=== PATIENT | female | born 1940 | race Two or more races ===

== ENCOUNTER 2021-01-25 05:35 | Day surgery (SDC) | payer OTHER ==
[~2021-01-25 05:35] MED LIST: ADVIL MIGRAINE200 MG PO; COZAAR100 MG PO; FLUTICASONE-SA1 EAC5; PAXIL30 MG PO; PERCOCET 10-321 EACH PO; PROAIR HFA8.5 GM IH; ZOCOR40 MG PO
== END 2021-01-25 10:10 | disposition home or self-care (01) ==
LOC: CIR.AMB 05:35
PROVIDERS: ATTEND Surgery Surgery of the Hand
DX: M65.841 Other synovitis and tenosynovitis, right hand (principal); Z20.822 Contact with and (suspected) exposure to COVID-19

== ENCOUNTER 2021-08-30 08:09 | Outpatient (CLI) | payer OTHER | END 2021-08-30 08:17 | disposition home or self-care (01) | LOC: RX STUDY 08:09 | PROVIDERS: ATTEND Internal Medicine Pulmonary Disease | DX: R13.19 Other dysphagia (principal) ==

== ENCOUNTER 2023-10-11 07:46 | Outpatient (CLI) | payer OTHER | END 2023-10-11 07:51 | disposition home or self-care (01) | LOC: RX STUDY 07:46 | PROVIDERS: ATTEND Specialist/Technologist, Other Nephrology | DX: R13.19 Other dysphagia (principal) ==

== ENCOUNTER 2023-10-22 07:12 | Outpatient (CLI) | payer OTHER | END 2023-10-22 07:21 | disposition home or self-care (01) | LOC: NUCLEAR 07:12 | PROVIDERS: ATTEND Internal Medicine Cardiovascular Disease | DX: I20.89 Other forms of angina pectoris (principal) | CPT/HCPCS: 78452; 93017; A9500 ==

== ENCOUNTER 2024-06-05 15:23 | Emergency (ER) | payer OTHER ==
[~2024-06-05] VITALS: Ht 157.5 cm; Wt 54.9 kg
[2024-06-05] MEDS ORDERED: PERCOCET 10-321 EACH (15:59)
[2024-06-05 18:59] LABS: URINE APPEARANCE Clear; URINE BILIRRUBIN Negative (NEGATIVE); URINE BLOOD Negative; URINE COLOR Yellow; URINE GLUCOSE Negative (NEGATIVE); URINE KETONE Negative (NEGATIVE); URINE LEUKOCYTE Trace; URINE NITRATE Negative; URINE PROTEIN Negative (NEGATIVE); URINE UROBILINOGEN 0.2 E.U./dl
[2024-06-05 19:03] LABS: URINE BACTERIA 2601.6 uL (0.0-1933); URINE EPITHELIAL CELLS 17.4 uL (0.0-38.8); URINE RBC 7.1 uL (0.0-20.8); URINE WBC 82.3 uL (0.0-23.2)
[2024-06-05 19:48] LABS: URINE CAST 0.61 uL (0.0-1.40)
== END 2024-06-06 01:35 | disposition home or self-care (01) ==
LOC: ER 15:25
PROVIDERS: Emergency Medicine
DX: N39.0 Urinary tract infection, site not specified (principal); I10 Essential (primary) hypertension; J45.909 Unspecified asthma, uncomplicated; Z91.013 Allergy to seafood; Z88.0 Allergy status to penicillin; Z91.041 Radiographic dye allergy status